=== PATIENT | male | born 1960 | race Caucasian/White ===

== ENCOUNTER → 2018-03-10 | Outpatient (CLI) | payer BC ==
--- NOTE | 2018-03-10 09:17 | US ---
EXAMINATION TYPE: US prostate transrectal DATE OF EXAM: 03/10/2018 COMPARISON: NONE CLINICAL HISTORY: K40.90 inguinal hernia. Enlarged prostate, weak urine stream, elevated PSA This examination was performed using the transrectal probe. EXAM MEASUREMENTS: Gland Size: 4.2 x 3.2 x 4.8cm Volume: 32.7ml Predicted PSA: 3.9 Actual PSA (if available):5.7 Mildly enlarged heterogeneous gland 1.5 x 1.2 x 1.3cm septated cystic area seen within left base cent ral zone. IMPRESSION: No suspicious lesions identified. Discordant actual PSA and predicted PSA. Appropriate fo llow-up advised. Predicted PSA = volume x 0.12 ng/ml Calculated Volume = 0.5236 x L x W x H
== END ==
LOC: RADUSMAIN 07:50
PROVIDERS: ATTEND Family Medicine
DX: K40.90 Unilateral inguinal hernia, without obstruction or gangrene, not specified as recurrent (principal)
CPT/HCPCS: 76872

== ENCOUNTER → 2019-05-29 | Outpatient (CLI) | payer OTHER ==
--- NOTE | 2019-06-04 08:25 | MR ---
EXAMINATION TYPE: MR Prostate wo/w con DATE OF EXAM: 05/29/2019 COMPARISON: Prostate ultrasound March 10, 2018 IMAGE QUALITY: Good. INDICATION: elevated PSA PSA: 5.8 ng/ml on October 23, 2018 Recent Biopsy and Date: April 19, 2018. Pathology Report (If Applicable): Right lateral base atypical small acinar proliferation. TECHNIQUE: Examination was performed using a 3T MRI without an endorectal coil. Multiparametric imaging was perf ormed with T2 mutliplanar sequences, axial diffusion weighted imaging and dynamic contrast enhanced i maging, utilizing 10 mL intravenous Gadavist gadolinium contrast. FINDINGS: There is no clinically significant cancer identified. PROSTATE VOLUME: 4.7 cm SI x 3.6 cm AP x 4.9 cm LR Vol= 43.4 cc PSA DENSITY: 5.208 ng/ml/cc Site 1: Some vague areas of slight indistinct hypointensity in the peripheral zone on ADC mapping wit hout more focal hypointense areas. For reference 6 to 7 mm left medial mid zone image 164 series 607. Assessment Category:2 Transitional zone is enlarged and heterogeneous without suspicious areas of hypointensity on T2-weigh tino imaging. Assessment category: 1 Prostate gland show small focus 10 x 7 mm of T1 hyperintensity or hemorrhage right medial transitiona l zone mid aspect axial image 16 from recent biopsy. Prostatic capsule is intact. Seminal vesicles are symmetric and slightly bulky. Bladder is poorly dis tended with mild wall thickening and trabeculation presumed product of outlet obstruction related to BPH. No suspicious pelvic or groin adenopathy. Osseous structures are intact. Incidental 7 mm Tarlov cyst S2 level sagittal image 12. IMPRESSION: A focus of clinically significant cancer is not identified. Highest Assessment Category: 2 MRI Stage: T0 N0 M0 based on review of pelvic images. False negative rates for MRI range from 5-20% depending on risk profile. Assessment Categories: 1 ? Very low (clinically significant cancer is highly unlikely to be present) 2 ? Low (clinically significant cancer is unlikely to be present) 3 ? Intermediate (the presence of clinically significant cancer is equivocal) 4 ? High (clinically significant cancer is likely to be present) 5 ? Very high (clinically significant cancer is highly likely to be present) Locations: PZ = peripheral zone; TZ = transition zone CZ=central zone; AFS = anterior fibromuscular stroma a=anterior half (i.e. PZa=anterior half of peripheral zone); pm= posterior medial (i.e PZpm) pl = postero-lateral (i.e. PZpl); p = posterior half (i.e. TZp) ; a = anterior half (i.e TZa or P Za) Other: N=no or no; E= equivocal; Y=yes EPE = extraprostatic extension NVB = neurovascular bundle NA = not applicable/not available
== END | disposition home or self-care (01) ==
LOC: RADMRIMAIN 08:16
PROVIDERS: ATTEND Urology
DX: R97.20 Elevated prostate specific antigen [PSA] (principal)
CPT/HCPCS: 72197; A9585

== ENCOUNTER → 2024-03-29 | Outpatient (CLI) | payer BC ==
--- NOTE | 2024-03-30 13:46 | NM ---
EXAMINATION TYPE: NM thyroid image w uptake DATE OF EXAM: 03/30/2024 COMPARISON: NONE CLINICAL INDICATION: Male, 63 years old with history of E05.90 SUBCLINICAL HYPERTHYROIDISM; TECHNIQUE: Thyroid iodine uptake is calculated and images performed after the oral administration of 314 uCi 1-123 Capsule. FINDINGS: There is normal distribution of activity throughout the gland. The 4 hour iodine uptake is calculated at 8.3% (normal range 8-14%). The 24-hour iodine uptake is calculated at 18.7% (normal ra nge 15-35%). IMPRESSION: Normal thyroid scan and uptake. [facility], , 03/30/2024 1:44 PM
== END | disposition home or self-care (01) ==
LOC: RADNMMAIN 09:22
PROVIDERS: ATTEND Internal Medicine Endocrinology, Diabetes & Metabolism
DX: E05.90 Thyrotoxicosis, unspecified without thyrotoxic crisis or storm (principal)
CPT/HCPCS: 78014; A9516

== ENCOUNTER → 2024-04-12 | Outpatient (CLI) | payer BC | END | disposition home or self-care (01) | LOC: LABWHC1 15:28 | PROVIDERS: ATTEND Internal Medicine Endocrinology, Diabetes & Metabolism | DX: E05.90 Thyrotoxicosis, unspecified without thyrotoxic crisis or storm (principal) | CPT/HCPCS: 36415; 84439; 84443; 84445; 84480 ==

== ENCOUNTER → 2024-07-06 | Outpatient (CLI) | payer BC ==
[2024-07-06 15:38] LABS: T4, Free (Free Thyroxine) 1.14 ng/dL (0.80-1.80)
== END | disposition home or self-care (01) ==
LOC: LABWHC1 10:19
DX: E05.90 Thyrotoxicosis, unspecified without thyrotoxic crisis or storm (principal)
CPT/HCPCS: 36415; 84439; 84443; 84481

== ENCOUNTER → 2024-10-06 | Outpatient (CLI) | payer BC | END | disposition home or self-care (01) | LOC: LABWHC1 08:40 | PROVIDERS: ATTEND Internal Medicine Endocrinology, Diabetes & Metabolism | DX: E05.90 Thyrotoxicosis, unspecified without thyrotoxic crisis or storm (principal) | CPT/HCPCS: 36415; 84439; 84443; 84480 ==